=== PATIENT | female | born 1990 | race Hispanic/Latino ===

== ENCOUNTER 2018-01-11 06:47 | Outpatient (CLI) | payer OTHER ==
--- NOTE | 2018-01-11 09:20 | ULT ---
SONOGRAM ABDOMEN COMPLETE: HISTORY: Abnormal liver function tests. FINDINGS: Gallbladder has a normal appearance without evidence of stones. The common duct is 0.2 cm. The live r id diffusely echogenic. Area of fatty sparing is seen near the gallbladder fossa. No free fluid. The spleen, kidneys, and visualized portions of the abdominal aorta, IVC, and pancreas are unremarkab le. IMPRESSION: 1. No evidence of gallstones or biliary obstruction. 2. Hepatosteatosis. POS: [facility]
== END 2018-01-11 06:48 | disposition home or self-care (01) ==
LOC: BICULT 06:47
PROVIDERS: ATTEND Family Medicine
DX: R74.8 Abnormal levels of other serum enzymes (principal); K76.0 Fatty (change of) liver, not elsewhere classified
CPT/HCPCS: 76700

== ENCOUNTER 2019-04-11 10:40 | Emergency (ER) | payer OTHER | END 2019-04-11 12:40 | disposition home or self-care (01) | LOC: ERS 10:40 | DX: S39.012A Strain of muscle, fascia and tendon of lower back, initial encounter (principal); X50.1XXA Overexertion from prolonged static or awkward postures, initial encounter; Y93.E2 Activity, laundry | CPT/HCPCS: 99283 ==